=== PATIENT | male | born 1990 | race Caucasian/White ===

== ENCOUNTER 2016-12-25 09:57 | Emergency (ER) | payer OTHER ==
[~2016-12-25] VITALS: Ht 185.4 cm; Wt 70.0 kg
[2016-12-25 10:01] VITALS: Ht 185.4 cm; Wt 70.0 kg
[2016-12-25] MEDS ORDERED: CEPH-443 PO (10:46)
[2016-12-25] MEDS ORDERED: SULF1TAB31 PO (10:46)
[2016-12-25] MEDS ORDERED: TRIMETHOPRIM/SULFAMETHOX (DS) TAB PO ONE (11:00)
[2016-12-25] MEDS ORDERED: CEPHALEXIN 500 MG CAP PO ONE (11:00)
--- NOTE | 2016-12-25 11:13 | ERD ---
ER Documentation Chief Complaint Date/Time DATE: 12/25/16 TIME: 11:01 Chief Complaint Complains of possible spider bite /abscess to right wrist HPI 26-year-old male with history of polysubstance abuse is complaining of "spider bites" on his right wrist. Patient states that he has these lesions for about 3 weeks. Had been picking at it, and try to drain them. Patient states he was able to drain a lot of pus out a few days ago. Reports "not feeling well" the last 2-3 days. He smokes and injects meth daily. Injects heroin as well, last use was 2 weeks ago. He also uses tobacco and alcohol as well. Denies fever or chills. Denies abdominal pain, nausea, vomiting. Patient states that he is currently homeless, and penniless. ROS All systems reviewed and are negative except as per history of present illness. Medications Home Meds Active Scripts Cephalexin* (Keflex*) 500 Mg Capsule, 500 MG PO QID for 7 Days, CAP Prov:MARANDA GARCIA. ASSISTANT ASSOCIATE PROFESSOR 12/25/16 Sulfamethoxazole/Trimethoprim* (Bactrim Ds* Tablet) 1 Each Tablet, 1 TAB PO BID for 7 Days, #14 TAB Prov:MARANDA GARCIA. ASSISTANT ASSOCIATE PROFESSOR 12/25/16 Allergies Allergies: Coded Allergies: No Known Allergy (Unverified , 12/25/16) PMhx/Soc Medical and Surgical Hx: pt denies Medical Hx History of Surgery: No Anesthesia Reaction: No Hx Neurological Disorder: No Hx Respiratory Disorders: No Hx Cardiac Disorders: No Hx Psychiatric Problems: No Hx Miscellaneous Medical Probl: No Hx Alcohol Use: Yes Hx Substance Use: Yes (heroin,meth) Hx Tobacco Use: Yes Smoking Status: Current every day smoker Physical Exam Vitals Vital Signs Date Time Temp Pulse Resp B/P Pulse Ox O2 Delivery O2 Flow Rate FiO2 12/25/16 10:01 98.3 63 20 121/70 100 Physical Exam General: Well-developed, well-nourished, conscious and coherent, in no distress Skin: Warm and dry without rash, good texture and turgor. 2 ulcers noted patient's right wrist, was minimal surrounding erythema and swelling. Not fluctuant. Patient is observed picking at the lesions. Head: Normocephalic without evidence of trauma Eyes: Sclera and conjunctivae normal; pupils equal, round, and reactive to light; extraocular movements are intact Neck: Supple without meningismus or adenopathy. Carotids are equal. Trachea midline. No bruits or JVD Chest: Normal AP diameter. Good expansion without retractions. Nontender. Lungs are clear to auscultate bilaterally with good tidal volume Heart: Regular rate and rhythm. No murmur, rub, or gallops heard Extremities: Full range of motion. Good strength bilaterally. No clubbing, cyanosis, or edema. Peripheral pulses are intact. Sensation intact Neuro: Alert and oriented 4, GCS 15. Cranial nerves grossly intact. Motor and sensory exams nonfocal. Moves all extremities. Speech clear. Gait normal Results 24 hrs Current Medications Medications (Trade) Dose Ordered Sig/Trisha Route PRN Reason Start Time Stop Time Status Last Admin Dose Admin Trimethoprim/ Sulfamethoxazole (Bactrim (Ds)) 1 tab ONCE ONCE PO 12/25/16 11:00 12/25/16 11:01 12/25/16 10:49 Cephalexin (Keflex) 500 mg ONCE ONCE PO 12/25/16 11:00 12/25/16 11:01 12/25/16 10:49 Procedures/MDM 26-year-old male with history of polysubstance abuse presented to ED with lesions on his right wrist. The lesions are ulcerated, with slight surrounding erythema and swelling. I suspect cellulitis secondary to skin picking due to meth use. There is no sign of abscess at this time. Drug use cessation counseling provided for the patient. Patient is currently homeless. Homeless resources as well as substance abuse resources provided for the patient. Patient given 1 dose of Bactrim DS and Keflex in the ED. Additional Bactrim DS and Keflex prescribed. However, I suspect the patient may not feel the subscription. Patient appears well, stable for discharge and outpatient management. Medical decision making shared with patient and family. Education provided to patient and family. Patient and family expressed understanding of the plan. Medications on discharge: Bactrim DS, Keflex. Follow-up: Return to ED or clinic in 2 days for recheck. Departure Diagnosis: Primary Impression: Cellulitis Site of cellulitis: extremity Site of cellulitis of extremity: upper extremity Laterality: right Qualified Code: L03.113 - Cellulitis of right upper extremity Additional Impression: Substance abuse Condition: Stable Patient Instructions: Understanding Heroin Abuse and Addiction, Understanding Methamphetamine Abuse and Addiction, Cellulitis Referrals: [facility] YOU HAVE RECEIVED A MEDICAL SCREENING EXAM AND THE RESULTS INDICATE THAT YOU DO NOT HAVE A CONDITION THAT REQUIRES URGENT TREATMENT IN THE EMERGENCY DEPARTMENT. FURTHER EVALUATION AND TREATMENT OF YOUR CONDITION CAN WAIT UNTIL YOU ARE SEEN IN YOUR DOCTORS OFFICE WITHIN THE NEXT 1-2 DAYS. IT IS YOUR RESPONSIBILITY TO MAKE AN APPOINTMENT FOR FOLOW-UP CARE. IF YOU HAVE A PRIMARY DOCTOR --you should call your primary doctor and schedule an appointment IF YOU DO NOT HAVE A PRIMARY DOCTOR YOU CAN CALL OUR PHYSICIAN REFERRAL HOTLINE AT IF YOU CAN NOT AFFORD TO SEE A PHYSICIAN YOU CAN CHOSE FROM THE FOLLOWING [facility]LY [facility] [address] [facility]. [facility] [address] [facility] [facility] [address] [facility]. [facility] [address] [facility] [facility] [address] [facility]. [facility]. [address] Additional Instructions: Return to this facility in 2 DAYS for a follow-up exam.Return sooner if your condition worsens. MARANDA GARCIA NP Dec 25, 2016 11:13
== END 2016-12-25 11:32 | disposition home or self-care (01) ==
LOC: FTE 09:57
DX: L03.113 Cellulitis of right upper limb (principal); F17.210 Nicotine dependence, cigarettes, uncomplicated; F19.10 Other psychoactive substance abuse, uncomplicated
CPT/HCPCS: 99284